=== PATIENT | male | born 1995 | race Caucasian/White ===

== ENCOUNTER 2019-05-28 21:45 | Inpatient (IN) ==
[2019-05-28 23:54] LABS: Basophils % 0.3 %; Eosinophils # 0.1 K/mcL (0.0-0.6); Eosinophils % 1.2 %; Hematocrit 46.9 % (37.5-50.1); Immature Granulocytes % 0.2 % (0-4); Lymphocytes # 2.5 K/mcL (0.6-4.6); Lymphocytes % 26.3 %; Mean Corpuscular HGB Conc 34.1 g/dL (31.6-35.5); Mean Corpuscular Hemoglobin 28.7 pg (28.0-33.3); Mean Corpuscular Volume 84.1 fL (83.0-100.0); Mean Platelet Volume 10.5 fL (9.4-12.4); Monocytes # 0.7 K/mcL (0.0-1.3); Neutrophils # 6.2 K/mcL (1.6-8.9); Platelet Count 190 K/mcL (140-400); Red Blood Count 5.58 M/mcL (4.19-5.50); Red Cell Distribution Width 11.6 % (11.5-14.5); White Blood Count 9.5 K/mcL (4.3-11.1)
[2019-05-29 00:16] LABS: BUN/Creatinine Ratio 8 (6-26); Blood Urea Nitrogen 8 mg/dL (6-20); Calcium 8.8 mg/dL (8.6-10.3); Carbon Dioxide 29 mEq/L (23-29); Chloride 98 mEq/L (98-107); Glucose 111 mg/dL (70-105); Osmolality,Calculated 277 (280-300); Potassium 3.2 mEq/L (3.5-5.1); Sodium 134 mEq/L (136-145); eGFR For African Americans > 60 (> 60); eGFR For Non-African Americans > 60 (> 60)
[2019-05-29 00:48] LABS: Bilirubin,Urine Small (Negative); Blood,Urine Negative (Negative); Clarity,Urine Clear (Clear); Color,Urine Dark Yellow (Yellow); Glucose,Urine (UA) Normal (Normal); Ketones,Urine Negative (Negative); Leukocyte Esterase,Urine Negative (Negative); Nitrite,Urine Negative (Negative); Protein,Urine Negative (Neg-Trace); Specific Gravity,Urine 1.026 (1.010-1.025)
[2019-05-29] MEDS ORDERED: Ondansetron 4 MG/2 ML VIAL IVP ONE (00:51)
[2019-05-29] MEDS ORDERED: 0.9 % Sodium Chloride 1,000 ML IVC ONE (00:51)
--- NOTE | 2019-05-29 00:53 | Emergency Department Note ---
Disposition Clinical Impression: Meningitis Headache Qualifiers: Headache type: unspecified Headache chronicity pattern: acute headache Intractability: intractable Qualified Code(s): R51 - Headache Fever Qualifiers: Fever type: unspecified Qualified Code(s): R50.9 - Fever, unspecified Disposition: Still a Patient Condition: Fair Time of Disposition: 06:23 Headache HPI - General Chief Complaint: ED Headache Stated Complaint: "R/O meningitis" WAUC/headache/fever Time Seen by Provider: 05/28/19 23:49 Source: patient, family Mode of arrival: ambulatory Limitations: no limitations Nursing Notes Reviewed: Yes Vital Signs Reviewed: Yes - History of Present Illness HPI Narrative: 4-year-old male patient presents emergency room for evaluation of headache. He was seen at [facility] with the fever advised him to come here. Headache is been ongoing for the last 1 week. States had a fever intermittently. Take Motrin. He has pain in the base of his neck hurts a little with movement Patient has a loss of bowel or bladder function. Patient has had upper respiratory type symptoms for the last few days. He also states that several does of been sick with runny nose cough and congestion type symptoms. Pt Subjective Complaint: headache Onset (ago): week(s) (1) Onset description: gradual Location: occipital Pain Severity: moderate Pain Scale: 8 Quality: throbbing Improves with: nothing Worsens with: movement of head/neck Associated symptoms: Reports: fever, nausea. Denies: chest pain, cough, diaphoresis, vomiting, neck stiffness, photophobia, phonophobia, seizure Treatments prior to arrival: acetaminophen, NSAID - Related Data Home Medications Medication Instructions Recorded Confirmed No Known Home Drugs 05/28/19 05/28/19 Allergies Allergy/AdvReac Type Severity Reaction Status Date / Time azithromycin [From Zithromax] AdvReac Vomiting Verified 05/28/19 22:00 All systems ED: reviewed and negative except as stated. Constitutional: Reports: fever, chills, other (Headache). Denies: weakness, weight change Eyes: Denies: eye pain, eye discharge, vision change ENT ED: Denies: ear pain, throat pain, dental pain, hearing loss, epistaxis, congestion, dysphagia Cardiovascular: Denies: chest pain, palpitations, dyspnea on exertion, edema, syncope Respiratory: Reports: cough (Mild occasional). Denies: dyspnea, wheezes, hemoptysis, stridor Gastrointestinal: Denies: abdominal pain, nausea, vomiting, diarrhea, constipation, hematemesis, melena, hematochezia Genitourinary: Denies: urgency, dysuria, frequency, hematuria Musculoskeletal: Denies: back pain, neck pain, arthralgia, myalgia Integumentary: Denies: rash, abrasion, lesions Neurological: Reports: headache. Denies: weakness, numbness, paresthesias, confusion, abnormal gait, vertigo Psychiatric: Denies: anxiety, depression, suicidal thoughts, homicidal thoughts, auditory hallucinations, visual hallucinations Endocrine: Denies: fatigue Hematological/Lymphatic: Denies: easy bleeding, easy bruising Allergic/Immunologic: Denies: facial swelling, urticaria Headache PMH - Past Medical History Medical history: Reports: no medical history Male Surgical History: Reports: no surgical history Psychiatric history: Reports: no psych history - Social History Smoking Status: Current every day smoker Alcohol use: Reports: occasionally Drug use: Reports: none Physical Exam - General Limitations: no limitations General appearance: alert, in no apparent distress - Head Head exam: atraumatic, normocephalic, normal inspection - Eye Eye exam: Present: normal appearance, PERRL, EOMI - ENT ENT exam: normal exam, normal oropharynx, mucous membranes moist - Neck Neck exam: Present: normal inspection, full ROM, trachea midline - Chest Chest inspection: Present: normal inspection, symmetric chest wall rise - Respiratory Respiratory exam: Present: normal lung sounds bilaterally. Absent: respiratory distress, wheezes - Cardiovascular Cardiovascular exam: Present: regular rate, normal rhythm, normal heart sounds - Abdominal Exam Abdominal exam: Present: soft, Non-Tender, normal bowel sounds. Absent: tenderness, distention, guarding, rebound, rigidity - Extremities Exam Extremities exam: Present: normal inspection, full ROM. Absent: tenderness, pedal edema - Neurological Exam Neurological exam: Present: alert, oriented X3, CN II-XII intact, normal gait, other (Patient is negative for Brudzinski's or Kernig's sign.). Absent: motor sensory deficit - Expanded Neurological Exam Patient oriented to: Present: person, place, time Speech: Present: fluid speech Cranial nerves: EOM function (II, III, IV, ): Normal, facial sensation (V): Normal, facial palsy (VII): Normal, gag reflex (IX): Normal, spinal accessory function (XI): Normal, tongue deviation (XII): Normal Motor strength - LUE: 5/5 Motor strength - RUE: 5/5 Motor strength - LLE: 5/5 Motor strength - RLE: 5/5 Coma Scale Eye Opening: Spontaneous Coma Scale Motor Response: Obeys Commands Coma Scale Verbal Response: Oriented Coma Scale Total: 15 - Psychiatric Psychiatric exam: Present: normal affect, normal mood - Skin Skin exam: Present: warm, dry, intact, normal color. Absent: rash Course Course Narrative: Patient was placed in exam room. H&P of pain. Nurse's notes reviewed. Patient does not have any meningismus type signs or symptoms but does have a headache and pain in the base of his neck. Patient was in there for further evaluation for meningitis. Basic lab work including a head CT and chest x-ray, Monospot, rapid strep were obtained. There are no significant abnormalities. Patient wh ite count was normal CT scan was read and interpreted showed no acute bleed or malformation. Patient gave informed consent for lumbar puncture. Risks and benefits were explained. Lumbar puncture was performed. There was a large amount nuclear cells no red cells, negative for xanthochromia, protein was elevated and glucose was normal. Patient was given Rocephin 2 g IV. Blood cultures were obtained prior to antibiotic administration. Patient will require admission. Dr. Thompson, we will contact and speak to the hospitalist concerning this. Additional buttocks or even antivirals may need to be added this over discussed with the admitting physician as well as infectious disease if necessary Patient denies to me any IV drug use and urine drug screen was negative - Reevaluation(s) Reevaluation #1: Patient is resting comfortably Time: 04:30 Reevaluation #2: Patient was evaluated several times.. He remained comfortable. Time: 05:30 Reevaluation #3: Patient was reevaluated multiple times during the members department visit. Patient is aware of and is okay with observation/admission. Time: 07:30 Vital Signs Temperature 100.1 F H 05/28/19 22:00 Pulse Rate 84 05/28/19 22:00 Respiratory Rate 20 05/28/19 22:00 Blood Pressure 159/76 05/28/19 22:00 O2 Sat by Pulse Oximetry 97 05/28/19 22:00 Temperature 99.5 F 05/29/19 08:01 Pulse Rate 85 05/29/19 08:01 Respiratory Rate 20 05/29/19 07:11 Blood Pressure 116/48 05/29/19 07:11 O2 Sat by Pulse Oximetry 96 05/29/19 08:01 Oxygen Delivery Oxygen Delivery Room Air Procedures - Lumbar Puncture Consent Obtained: verbal consent, written consent Time Out Performed: Yes Patient Position: upright Skin Prep: Povidone-Iodine 1% Local Anesthetic: lidocaine 1% Amount of anesthesia used (mL): 3 Spinal Needle Gauge: 20G Interspace Used: L3-L4 Fluid Initially Obtained: bloody Complications: none, bleeding Headache - Differential Diagnosis Differential Diagnosis: Likely: migraine, subarachnoid hemorrhage, headache, menigitis - Medical Records Medical records reviewed: Yes I reviewed the patient's medical records. - Lab Data Lab results reviewed: Yes I reviewed the patient's lab results. Lab results narrative: Chest X-Ray 05/29/19 02:17 IMPRESSION: No pneumonia or any other acute cardiopulmonary abnormality. D/ / Krystian Cohen / Krystian Cohen Interpreting Provider: Krystian Cohen Head CT 05/29/19 02:44 IMPRESSION: No acute intracranial abnormality or mass. D/ / Krystian Cohen / Krystian Cohen Interpreting Provider: Krystian Cohen Result diagrams: 05/28/19 23:35 05/28/19 23:35 Lab Results 05/28/19 05/28/19 05/29/19 Range/Units 23:35 23:35 00:06 WBC 9.5 (4.3-11.1) K/mcL RBC 5.58 H (4.19-5.50) M/mcL Hgb 16.0 (12.9-16.9) g/dL Hct 46.9 (37.5-50.1) % MCV 84.1 (83.0-100.0) fL MCH 28.7 (28.0-33.3) pg MCHC 34.1 (31.6-35.5) g/dL RDW 11.6 (11.5-14.5) % Plt Count 190 (140-400) K/mcL MPV 10.5 (9.4-12.4) fL Immature Gran % 0.2 (0-4) % Seg Neutrophils % 65.0 % Lymphocytes % 26.3 % Monocytes % 7.0 % Eosinophils % 1.2 % Basophils % 0.3 % Neutrophils # 6.2 (1.6-8.9) K/mcL Lymphocytes # 2.5 (0.6-4.6) K/mcL Monocytes # 0.7 (0.0-1.3) K/mcL Eosinophils # 0.1 (0.0-0.6) K/mcL Basophils # 0.0 (0.0-0.2) K/mcL Sodium 134 L (136-145) mEq/L Potassium 3.2 L (3.5-5.1) mEq/L Chloride 98 (98-107) mEq/L Carbon Dioxide 29 (23-29) mEq/L BUN 8 (6-20) mg/dL Creatinine 1.01 (0.70-1.30) mg/dL Est GFR ( Amer) > 60 (> 60) Est GFR (Non-Af Amer) > 60 (> 60) BUN/Creatinine Ratio 8 (6-26) Glucose 111 H (70-105) mg/dL Calculated Osmolality 277 L (280-300) Lactic Acid 0.7 (0.5-2.2) mmol/L Calcium 8.8 (8.6-10.3) mg/dL Urine Color (Yellow) Urine Clarity (Clear) Urine pH (5.0-8.0) pH Units Ur Specific [place] (1.010-1.025) Urine Protein (Neg-Trace) mg/dL Urine Glucose (UA) (Normal) mg/dL Urine Ketones (Negative) mg/dL Urine Blood (Negative) Urine Nitrite (Negative) Urine Bilirubin (Negative) Urine Urobilinogen (Normal) mg/dL Ur Leukocyte Esterase (Negative) Ur Culture Indicated? (NO) CSF Volume mL CSF Appearance (Clear) CSF Color (Colorless) CSF RBC (0.000 - 0.002) M/mcL CSF Tot Nucleated Cells (0-5) TNC/mcL CSF Seg Neutrophils % CSF Lymphocytes % % CSF Monocytes % % CSF Eosinophils % % CSF Basophils % % CSF Glucose (40-70) mg/dL CSF Xanth Comm (Not Observe) CSF Total Protein (15-45) mg/dL Urine Opiates Screen (Incxqq=745) ng/mL Ur Buprenorphine Scrn (Cutoff=5) ng/mL Ur Barbiturates Screen (Jhljfv=762) ng/mL Ur Phencyclidine Scrn (Cutoff=25) ng/mL Ur Amphetamines Screen (Zwsyfy=4716) ng/mL U Benzodiazepines Scrn (Mqznce=656) ng/mL Urine Cocaine Screen (Cutoff= 300) ng/mL U Marijuana (THC) Screen (Cutoff = 50) ng/mL Ur Drug Screen Interp Infectious [place] Assay (Negative) 05/29/19 05/29/19 05/29/19 Range/Units 00:34 00:34 01:05 WBC (4.3-11.1) K/mcL RBC (4.19-5.50) M/mcL Hgb (12.9-16.9) g/dL Hct (37.5-50.1) % MCV (83.0-100.0) fL MCH (28.0-33.3) pg MCHC (31.6-35.5) g/dL RDW (11.5-14.5) % Plt Count (140-400) K/mcL MPV (9.4-12.4) fL Immature Gran % (0-4) % Seg Neutrophils % % Lymphocytes % % Monocytes % % Eosinophils % % Basophils % % Neutrophils # (1.6-8.9) K/mcL Lymphocytes # (0.6-4.6) K/mcL Monocytes # (0.0-1.3) K/mcL Eosinophils # (0.0-0.6) K/mcL Basophils # (0.0-0.2) K/mcL Sodium (136-145) mEq/L Potassium (3.5-5.1) mEq/L Chloride (98-107) mEq/L Carbon Dioxide (23-29) mEq/L BUN (6-20) mg/dL Creatinine (0.70-1.30) mg/dL Est GFR ( Amer) (> 60) Est GFR (Non-Af Amer) (> 60) BUN/Creatinine Ratio (6-26) Glucose (70-105) mg/dL Calculated Osmolality (280-300) Lactic Acid (0.5-2.2) mmol/L Calcium (8.6-10.3) mg/dL Urine Color Dark Yellow (Yellow) Urine Clarity Clear (Clear) Urine pH 6.0 (5.0-8.0) pH Units Ur Specific [place] 1.026 H (1.010-1.025) Urine Protein Negative (Neg-Trace) mg/dL Urine Glucose (UA) Normal (Normal) mg/dL Urine Ketones Negative (Negative) mg/dL Urine Blood Negative (Negative) Urine Nitrite Negative (Negative) Urine Bilirubin Small H (Negative) Urine Urobilinogen 2.0 H (Normal) mg/dL Ur Leukocyte Esterase Negative (Negative) Ur Culture Indicated? NO (NO) CSF Volume mL CSF Appearance (Clear) CSF Color (Colorless) CSF RBC (0.000 - 0.002) M/mcL CSF Tot Nucleated Cells (0-5) TNC/mcL CSF Seg Neutrophils % CSF Lymphocytes % % CSF Monocytes % % CSF Eosinophils % % CSF Basophils % % CSF Glucose (40-70) mg/dL CSF Xanth Comm (Not Observe) CSF Total Protein (15-45) mg/dL Urine Opiates Screen Negative (Dzveam=189) ng/mL Ur Buprenorphine Scrn Negative (Cutoff=5) ng/mL Ur Barbiturates Screen Negative ([place]=061) ng/mL Ur Phencyclidine Scrn Negative (Cutoff=25) ng/mL Ur Amphetamines Screen Negative (Iotvjt=8097) ng/mL U Benzodiazepines Scrn Negative (Xufenb=567) ng/mL Urine Cocaine Screen Negative (Cutoff= 300) ng/mL U Marijuana (THC) Screen Negative (Cutoff = 50) ng/mL Ur Drug Screen Interp See Below Infectious [place] Assay Negative (Negative) 05/29/19 Range/Units 06:08 WBC (4.3-11.1) K/mcL RBC (4.19-5.50) M/mcL Hgb (12.9-16.9) g/dL Hct (37.5-50.1) % MCV (83.0-100.0) fL MCH (28.0-33.3) pg MCHC (31.6-35.5) g/dL RDW (11.5-14.5) % Plt Count (140-400) K/mcL MPV (9.4-12.4) fL Immature Gran % (0-4) % Seg Neutrophils % % Lymphocytes % % Monocytes % % Eosinophils % % Basophils % % Neutrophils # (1.6-8.9) K/mcL Lymphocytes # (0.6-4.6) K/mcL Monocytes # (0.0-1.3) K/mcL Eosinophils # (0.0-0.6) K/mcL Basophils # (0.0-0.2) K/mcL Sodium (136-145) mEq/L Potassium (3.5-5.1) mEq/L Chloride (98-107) mEq/L Carbon Dioxide (23-29) mEq/L BUN (6-20) mg/dL Creatinine (0.70-1.30) mg/dL Est GFR ( Amer) (> 60) Est GFR (Non-Af Amer) (> 60) BUN/Creatinine Ratio (6-26) Glucose (70-105) mg/dL Calculated Osmolality (280-300) Lactic Acid (0.5-2.2) mmol/L Calcium (8.6-10.3) mg/dL Urine Color (Yellow) Urine Clarity (Clear) Urine pH (5.0-8.0) pH Units Ur Specific [place] (1.010-1.025) Urine Protein (Neg-Trace) mg/dL Urine Glucose (UA) (Normal) mg/dL Urine Ketones (Negative) mg/dL Urine Blood (Negative) Urine Nitrite (Negative) Urine Bilirubin (Negative) Urine Urobilinogen (Normal) mg/dL Ur Leukocyte Esterase (Negative) Ur Culture Indicated? (NO) CSF Volume 9.0 mL CSF Appearance Cloudy (Clear) CSF Color Colorless (Colorless) CSF RBC < 0.002 (0.000 - 0.002) M/mcL CSF Tot Nucleated Cells 1410 H* (0-5) TNC/mcL CSF Seg Neutrophils 69.0 % CSF Lymphocytes % 23.0 % CSF Monocytes % 8.0 % CSF Eosinophils % 0 % CSF Basophils % 0 % CSF Glucose 54 (40-70) mg/dL CSF Xanth Comm Not Observed (Not Observe) CSF Total Protein 127 H (15-45) mg/dL Urine Opiates Screen (Efagol=034) ng/mL Ur Buprenorphine Scrn (Cutoff=5) ng/mL Ur Barbiturates Screen (Pxjsoh=649) ng/mL Ur Phencyclidine Scrn (Cutoff=25) ng/mL Ur Amphetamines Screen (Mwoowl=4405) ng/mL U Benzodiazepines Scrn (Heazyw=628) ng/mL Urine Cocaine Screen (Cutoff= 300) ng/mL U Marijuana (THC) Screen (Cutoff = 50) ng/mL Ur Drug Screen Interp Infectious [place] Assay (Negative) - Radiology Data Radiology results reviewed: Yes I reviewed the patient's radiology results. Chest X-Ray 05/29/19 02:17 IMPRESSION: No pneumonia or any other acute cardiopulmonary abnormality. D/ / Krystian Cohen / Krystian Cohen Interpreting Provider: Krystian Coehn Head CT 05/29/19 02:44 IMPRESSION: No acute intracranial abnormality or mass. D/ / Krystian Cohen / Krystian Cohen Interpreting Provider: Krystian Cohen Critical Care Time Critical Care Time: Yes Total Critical Care Time: 30 Attestation: The high probability of a clinically significant, sudden or life threatening deterioration of the patient's condition required my full and direct attention, intervention and personal management.
[2019-05-29 02:05] LABS: Amphetamine Screen,Urine Negative ng/mL (Cutoff=1000); Barbiturate Screen,Urine Negative ng/mL (Cutoff=200); Benzodiazepines Screen,Urine Negative ng/mL (Cutoff=200); Cannabinoid Screen,Urine Negative ng/mL (Cutoff = 50); Cocaine Screen,Urine Negative ng/mL (Cutoff= 300); Opiate Screen,Urine Negative ng/mL (Cutoff=300); Phencyclidine Screen,Urine Negative ng/mL (Cutoff=25)
[2019-05-29] MEDS ORDERED: cefTRIAXone 2,000 MG in 0.9 % Sodium Chloride Mini Bag 100 ML IVPB ONE (06:12)
[2019-05-29 06:29] LABS: Red Blood Cell,CSF < 0.002 M/mcL
[2019-05-29 06:57] LABS: Appearance,CSF Cloudy (Clear)
[2019-05-29 07:04] LABS: Glucose,CSF 54 mg/dL (40-70); Total Protein,CSF 127 mg/dL (15-45)
[2019-05-29 07:09] LABS: Basophils,CSF 0 %; Eosinophils,CSF 0 %
[2019-05-29] MEDS ORDERED: Vancomycin 1,750 MG in 0.9 % Sodium Chloride 250 ML IVPB ONE (07:41)
[2019-05-29] MEDS ORDERED: Acyclovir 800 MG in D5% in Water 250 ML IVPB ONE (07:41)
[2019-05-29] MEDS ORDERED: Potassium Chloride 40 MEQ, Lidocaine 1% 2 ML in 0.9 % Sodium Chloride 500 ML IVPB ONE (07:42)
--- NOTE | 2019-05-29 07:55 | Emergency Department Note ---
Disposition Clinical Impression: Meningitis Headache Qualifiers: Headache type: unspecified Headache chronicity pattern: acute headache Intractability: intractable Qualified Code(s): R51 - Headache Fever Qualifiers: Fever type: unspecified Qualified Code(s): R50.9 - Fever, unspecified Disposition: Still a Patient Condition: Fair Time of Disposition: 08:15 General Adult HPI - General Chief complaint: ED Headache Stated complaint: "R/O meningitis" WAUC/headache/fever Time Seen by Provider: 05/28/19 23:49 Source: patient, family Mode of arrival: ambulatory Limitations: no limitations Nursing Notes Reviewed: Yes Vital Signs Reviewed: Yes - History of Present Illness Pain Scale: 8 - Related Data Home Medications Medication Instructions Recorded Confirmed No Known Home Drugs 05/28/19 05/28/19 Allergies Allergy/AdvReac Type Severity Reaction Status Date / Time azithromycin [From Zithromax] AdvReac Vomiting Verified 05/28/19 22:00 Past Medical History - Past Medical History Attestation: Yes The following information was validated with the patient. Medical history: Reports: no medical history Surgical history: Reports: no surgical history Psychiatric history: Reports: no psych history - Social History Smoking Status: Current every day smoker Smokeless Tobacco Status: No Alcohol use: Reports: occasionally Drug use: Reports: none Physical Exam - General Limitations: no limitations General appearance: alert Course - Reevaluation(s) Reevaluation #1: Patient signed out pending admission. He is a 24-year-old healthy male who sent a week was of an occipital headache. He is now having a neck stiffness and a fever for the past 24 hours. I reexamined him. He does have some neck pain with range of motion, but he has full range of motion. Able to flex his knees to his chest without difficulty. CSF did show a lot of white cells. I had them add on HSV PCR. Patient received 2 g of Rocephin. I did add VAncomycin and acyclovir. Awaiting hospitalist call back for admission. Nurse placing second IV. Time: 07:55 - Consultations Consultation #1: Dr Meyer accepts admission. Time: 08:15 Vital Signs Temperature 100.1 F H 05/28/19 22:00 Pulse Rate 84 05/28/19 22:00 Respiratory Rate 20 05/28/19 22:00 Blood Pressure 159/76 05/28/19 22:00 O2 Sat by Pulse Oximetry 97 05/28/19 22:00 Temperature 99.5 F 05/29/19 08:01 Pulse Rate 85 05/29/19 08:01 Respiratory Rate 20 05/29/19 07:11 Blood Pressure 116/48 05/29/19 07:11 O2 Sat by Pulse Oximetry 96 05/29/19 08:01 Oxygen Delivery Oxygen Delivery Room Air Medical Decision Making - Lab Data Result diagrams: 05/28/19 23:35 05/28/19 23:35 Lab Results 05/28/19 05/28/19 05/29/19 Range/Units 23:35 23:35 00:06 WBC 9.5 (4.3-11.1) K/mcL RBC 5.58 H (4.19-5.50) M/mcL Hgb 16.0 (12.9-16.9) g/dL Hct 46.9 (37.5-50.1) % MCV 84.1 (83.0-100.0) fL MCH 28.7 (28.0-33.3) pg MCHC 34.1 (31.6-35.5) g/dL RDW 11.6 (11.5-14.5) % Plt Count 190 (140-400) K/mcL MPV 10.5 (9.4-12.4) fL Immature Gran % 0.2 (0-4) % Seg Neutrophils % 65.0 % Lymphocytes % 26.3 % Monocytes % 7.0 % Eosinophils % 1.2 % Basophils % 0.3 % Neutrophils # 6.2 (1.6-8.9) K/mcL Lymphocytes # 2.5 (0.6-4.6) K/mcL Monocytes # 0.7 (0.0-1.3) K/mcL Eosinophils # 0.1 (0.0-0.6) K/mcL Basophils # 0.0 (0.0-0.2) K/mcL Sodium 134 L (136-145) mEq/L Potassium 3.2 L (3.5-5.1) mEq/L Chloride 98 (98-107) mEq/L Carbon Dioxide 29 (23-29) mEq/L BUN 8 (6-20) mg/dL Creatinine 1.01 (0.70-1.30) mg/dL Est GFR ( Amer) > 60 (> 60) Est GFR (Non-Af Amer) > 60 (> 60) BUN/Creatinine Ratio 8 (6-26) Glucose 111 H (70-105) mg/dL Calculated Osmolality 277 L (280-300) Lactic Acid 0.7 (0.5-2.2) mmol/L Calcium 8.8 (8.6-10.3) mg/dL Urine Color (Yellow) Urine Clarity (Clear) Urine pH (5.0-8.0) pH Units Ur Specific [place] (1.010-1.025) Urine Protein (Neg-Trace) mg/dL Urine Glucose (UA) (Normal) mg/dL Urine Ketones (Negative) mg/dL Urine Blood (Negative) Urine Nitrite (Negative) Urine Bilirubin (Negative) Urine Urobilinogen (Normal) mg/dL Ur Leukocyte Esterase (Negative) Ur Culture Indicated? (NO) CSF Volume mL CSF Appearance (Clear) CSF Color (Colorless) CSF RBC (0.000 - 0.002) M/mcL CSF Tot Nucleated Cells (0-5) TNC/mcL CSF Seg Neutrophils % CSF Lymphocytes % % CSF Monocytes % % CSF Eosinophils % % CSF Basophils % % CSF Glucose (40-70) mg/dL CSF Xanth Comm (Not Observe) CSF Total Protein (15-45) mg/dL Urine Opiates Screen (Qnltwb=467) ng/mL Ur Buprenorphine Scrn (Cutoff=5) ng/mL Ur Barbiturates Screen (Atiaop=663) ng/mL Ur Phencyclidine Scrn (Cutoff=25) ng/mL Ur Amphetamines Screen (Evugwk=1251) ng/mL U Benzodiazepines Scrn (Vqsnxh=777) ng/mL Urine Cocaine Screen (Cutoff= 300) ng/mL U Marijuana (THC) Screen (Cutoff = 50) ng/mL Ur Drug Screen Interp Infectious [place] Assay (Negative) 05/29/19 05/29/19 05/29/19 Range/Units 00:34 00:34 01:05 WBC (4.3-11.1) K/mcL RBC (4.19-5.50) M/mcL Hgb (12.9-16.9) g/dL Hct (37.5-50.1) % MCV (83.0-100.0) fL MCH (28.0-33.3) pg MCHC (31.6-35.5) g/dL RDW (11.5-14.5) % Plt Count (140-400) K/mcL MPV (9.4-12.4) fL Immature Gran % (0-4) % Seg Neutrophils % % Lymphocytes % % Monocytes % % Eosinophils % % Basophils % % Neutrophils # (1.6-8.9) K/mcL Lymphocytes # (0.6-4.6) K/mcL Monocytes # (0.0-1.3) K/mcL Eosinophils # (0.0-0.6) K/mcL Basophils # (0.0-0.2) K/mcL Sodium (136-145) mEq/L Potassium (3.5-5.1) mEq/L Chloride (98-107) mEq/L Carbon Dioxide (23-29) mEq/L BUN (6-20) mg/dL Creatinine (0.70-1.30) mg/dL Est GFR ( Amer) (> 60) Est GFR (Non-Af Amer) (> 60) BUN/Creatinine Ratio (6-26) Glucose (70-105) mg/dL Calculated Osmolality (280-300) Lactic Acid (0.5-2.2) mmol/L Calcium (8.6-10.3) mg/dL Urine Color Dark Yellow (Yellow) Urine Clarity Clear (Clear) Urine pH 6.0 (5.0-8.0) pH Units Ur Specific [place] 1.026 H (1.010-1.025) Urine Protein Negative (Neg-Trace) mg/dL Urine Glucose (UA) Normal (Normal) mg/dL Urine Ketones Negative (Negative) mg/dL Urine Blood Negative (Negative) Urine Nitrite Negative (Negative) Urine Bilirubin Small H (Negative) Urine Urobilinogen 2.0 H (Normal) mg/dL Ur Leukocyte Esterase Negative (Negative) Ur Culture Indicated? NO (NO) CSF Volume mL CSF Appearance (Clear) CSF Color (Colorless) CSF RBC (0.000 - 0.002) M/mcL CSF Tot Nucleated Cells (0-5) TNC/mcL CSF Seg Neutrophils % CSF Lymphocytes % % CSF Monocytes % % CSF Eosinophils % % CSF Basophils % % CSF Glucose (40-70) mg/dL CSF Xanth Comm (Not Observe) CSF Total Protein (15-45) mg/dL Urine Opiates Screen Negative (Hjzzyj=484) ng/mL Ur Buprenorphine Scrn Negative (Cutoff=5) ng/mL Ur Barbiturates Screen Negative (Hsngdr=221) ng/mL Ur Phencyclidine Scrn Negative (Cutoff=25) ng/mL Ur Amphetamines Screen Negative (Uhovps=7448) ng/mL U Benzodiazepines Scrn Negative (Ebuhan=358) ng/mL Urine Cocaine Screen Negative (Cutoff= 300) ng/mL U Marijuana (THC) Screen Negative (Cutoff = 50) ng/mL Ur Drug Screen Interp See Below Infectious [place] Assay Negative (Negative) 05/29/19 Range/Units 06:08 WBC (4.3-11.1) K/mcL RBC (4.19-5.50) M/mcL Hgb (12.9-16.9) g/dL Hct (37.5-50.1) % MCV (83.0-100.0) fL MCH (28.0-33.3) pg MCHC (31.6-35.5) g/dL RDW (11.5-14.5) % Plt Count (140-400) K/mcL MPV (9.4-12.4) fL Immature Gran % (0-4) % Seg Neutrophils % % Lymphocytes % % Monocytes % % Eosinophils % % Basophils % % Neutrophils # (1.6-8.9) K/mcL Lymphocytes # (0.6-4.6) K/mcL Monocytes # (0.0-1.3) K/mcL Eosinophils # (0.0-0.6) K/mcL Basophils # (0.0-0.2) K/mcL Sodium (136-145) mEq/L Potassium (3.5-5.1) mEq/L Chloride (98-107) mEq/L Carbon Dioxide (23-29) mEq/L BUN (6-20) mg/dL Creatinine (0.70-1.30) mg/dL Est GFR ( Amer) (> 60) Est GFR (Non-Af Amer) (> 60) BUN/Creatinine Ratio (6-26) Glucose (70-105) mg/dL Calculated Osmolality (280-300) Lactic Acid (0.5-2.2) mmol/L Calcium (8.6-10.3) mg/dL Urine Color (Yellow) Urine Clarity (Clear) Urine pH (5.0-8.0) pH Units Ur Specific [place] (1.010-1.025) Urine Protein (Neg-Trace) mg/dL Urine Glucose (UA) (Normal) mg/dL Urine Ketones (Negative) mg/dL Urine Blood (Negative) Urine Nitrite (Negative) Urine Bilirubin (Negative) Urine Urobilinogen (Normal) mg/dL Ur Leukocyte Esterase (Negative) Ur Culture Indicated? (NO) CSF Volume 9.0 mL CSF Appearance Cloudy (Clear) CSF Color Colorless (Colorless) CSF RBC < 0.002 (0.000 - 0.002) M/mcL CSF Tot Nucleated Cells 1410 H* (0-5) TNC/mcL CSF Seg Neutrophils 69.0 % CSF Lymphocytes % 23.0 % CSF Monocytes % 8.0 % CSF Eosinophils % 0 % CSF Basophils % 0 % CSF Glucose 54 (40-70) mg/dL CSF Xanth Comm Not Observed (Not Observe) CSF Total Protein 127 H (15-45) mg/dL Urine Opiates Screen (Abnfwo=518) ng/mL Ur Buprenorphine Scrn (Cutoff=5) ng/mL Ur Barbiturates Screen (Ybdwaj=731) ng/mL Ur Phencyclidine Scrn (Cutoff=25) ng/mL Ur Amphetamines Screen (Dwtsnu=9790) ng/mL U Benzodiazepines Scrn (Qatepv=408) ng/mL Urine Cocaine Screen (Cutoff= 300) ng/mL U Marijuana (THC) Screen (Cutoff = 50) ng/mL Ur Drug Screen Interp Infectious [place] Assay (Negative)
--- NOTE | 2019-05-29 08:28 | Internal Med History&Physical ---
Date of Encounter: 05/29/19 Time of Encounter: 08:25 Internal Medicine - H&P: HPI Chief complaint: headache Admitted From: Home Plans for Post Hospital Care: Home History of present illness: Mr. Bender is a 24 year old male with past medical history of asthma came in with complain of 8 days' history of headache and fevers of 104 over the past 4-5 days on and off. Patient was sent from urgent care for evaluation of m eningitis. Patient reported upper respiratory symptoms including runny nose and sore throat starting about 7-8 days ago. He was taking Motrin for pain relief. Everything started about the same time including headache, runny nose and fever a few days later. Headache was occipital in nature. Denies any visual symptoms or any weakness, numbness. Headache worsened to include neck pain and upper b ack pain. Patient reported one episodes of vomiting and 2 episodes of diarrhea and decreased appetite. He lives at home and denies any IV drug use. He smokes. He reports allergy to azithromycin where he had stomach upset. Patient was admitted in the ER. Patient had a fever of 100.[address] head which did not show any signs of increased intracranial pressure. Monospot test and strep tests were negative. Lab was mostly unremarkable except mild hyponatremia and hypokalemia. Patient was given 2 of Rocephin. Lumbar puncture showed 1400 nucleated status with neutrophil predominance in CSF. Total protein In CSF was elevated at 127. Patient's lactic acid was normal and he received 1 L of normal saline. Patient was ordered of potassium, vancomycin and acyclovir and admission was requested for further management. Past Med Surg Social Fam HX - Past Medical History Medical history: asthma Psychiatric history: no psych history - Past Surgical History Surgical History: no surgical history - Social History Smoking Status: Current every day smoker Smokeless Tobacco Status: No Alcohol use: occasionally Drug use: none - Additional Family History Additional family history: brother has asthma. mother has copd and asthma. son had recent URI Internal Medicine - H&P: Meds No Known Home Drugs 05/28/19 [History] Allergy/AdvReac Type Severity Reaction Status Date / Time azithromycin [From Zithromax] AdvReac Vomiting Verified 05/28/19 22:00 All Systems PM: A 10-system review of systems was performed and is negative for pertinent findings except as documented above in the HPI. - Constitutional Vitals: Temp Pulse Resp BP Pulse Ox 99.5 F 85 20 116/48 96 05/29/19 08:01 05/29/19 08:01 05/29/19 07:11 05/29/19 07:11 05/29/19 08:01 Exam: Constitutional: Vitals as noted. Conversant. appears ill Eyes : Sclera white, conjunctiva clear, no lid lag, PEARLA. ENT : Grossly normal hearing, No JVD, no cervical lymphadenopathy. no thy romegaly or mass. Respiratory : Clear to auscultation bilaterally. No accessory muscle use, rales, rhonchi or wheezes Cardiovascular : RRR, +S1, +S2. no murmur, gallop, rubs. No chest wall tenderness GI/Abdominal : Soft, Non-tender, Non-distended, normal bowel sounds, no peritoneal signs. no orgenomegaly or mass appreciated. no hernia. Musculoskeletal: no deformity noted. no edema or cyanosis. warm extremities, pulses palpable and symmetrical in UE/LE. no calf tenderness. Neurological: AO X3, CN II-XII grossly intact, grossly normal motor and sensory exam. able to touch chin to chest with some neck pain, able to bring knee to chest without any pain. Skin: No skin rash, lesions or ulcers noted. Pych: Good insight and judgement. Intact memory. AOx3. Internal Med - H&P Results - Labs CBC & Chem 7: 05/28/19 23:35 05/28/19 23:35 Labs: Short CBC 05/28/19 Range/Units 23:35 WBC 9.5 (4.3-11.1) K/mcL Hgb 16.0 (12.9-16.9) g/dL Hct 46.9 (37.5-50.1) % Plt Count 190 (140-400) K/mcL Neutrophils # 6.2 (1.6-8.9) K/mcL BMP 05/28/19 23:35 Sodium 134 L Potassium 3.2 L Chloride 98 Carbon Dioxide 29 BUN 8 Creatinine 1.01 Glucose 111 H Calcium 8.8 Urine 05/29/19 Range/Units 00:34 Urine Color Dark Yellow (Yellow) Urine Clarity Clear (Clear) Urine pH 6.0 (5.0-8.0) pH Units Ur Specific [place] 1.026 H (1.010-1.025) Urine Protein Negative (Neg-Trace) mg/dL Urine Glucose (UA) Normal (Normal) mg/dL - Impressions ITS Impressions Chest X-Ray 05/29/19 02:17 IMPRESSION: No pneumonia or any other acute cardiopulmonary abnormality. D/ / Krystian Cohen / Krystian Cohen Interpreting Provider: Krystian Cohen Head CT 05/29/19 02:44 IMPRESSION: No acute intracranial abnormality or mass. D/ / Krystian Choen / Krystian Cohen Interpreting Provider: Krystian Cohen - Assessment and Plan (1) Headache Current Visit: Yes Status: Acute Assessment and plan: Likely secondary to meningitis When necessary Tylenol for headache Management of meningitis as below Qualifiers: Headache type: new daily persistent Qualified Code(s): G44.52 - New daily persistent headache (NDPH) (2) Meningitis Current Visit: Yes Status: Acute Assessment and plan: Patient without significant white count however had URI with high grade fever, headache and neck pain with some neck rigidity CSF highly suspicious of bacterial meningitis. CSF pressure not reported. Head CT without signs of increased intracranial pressure. We will keep head of bed elevated. Patient was given 2 g Rocephin. We will continue patient on Rocephin 2 g every 12 hours and vancomycin. We will keep patient on droplet isolation. Patient did not receive any steroid before getting antibiotic administration. We will not give it at this point. meningitis appear less likely to be viral however we will wait herpes PCR and continue acyclovir for now. Appears more likely to be streptococcal pneumoniae as patient with no risk factor for meningococcus exposure. Keep patient on gentle IV fluids and Zofran for nausea. Await Gram stain and final CSF culture report. Will get HIV testing. (3) Asthma Current Visit: Yes Status: Acute Assessment and plan: Does not take any medications at home. We will give When necessary albuterol for shortness of breath. Qualifiers: Asthma severity: mild Asthma persistence: intermittent Asthma complication type: uncomplicated Qualified Code(s): J45.20 - Mild intermittent asthma, uncomplicated - Time Spent With Patient Total time spent is greater than 50% in coordination of care (as documented) at patient's floor/unit and/or counseling patient:
[2019-05-29] MEDS ORDERED: Acetaminophen 325 MG TABLET PO PRN (08:48)
[2019-05-29] MEDS ORDERED: Ondansetron 4 MG/2 ML VIAL IVP PRN (08:48)
[2019-05-29] MEDS ORDERED: Vancomycin 1,750 MG in 0.9 % Sodium Chloride 250 ML IVPB SCH (09:00)
[2019-05-29] MEDS: 0.9 % Sodium Chloride 1,000 ML IVC SCH ×2 (10:51→23:00)
[2019-05-29] MEDS: Nicotine 14 MG PATCH.TD24 TD SCH (13:55)
[2019-05-29] MEDS: cefTRIAXone 2,000 MG in Water for inj. (sterile) 20 ML IVP SCH (18:03)
[2019-05-29] MEDS: Acyclovir 750 MG in D5% in Water 250 ML IVPB SCH ×2 (18:03→23:59)
[2019-05-30] MEDS: cefTRIAXone 2,000 MG in Water for inj. (sterile) 20 ML IVP SCH ×2 (05:13→17:53)
[2019-05-30 05:15] LABS: Basophils % 0.4 %; Eosinophils # 0.1 K/mcL (0.0-0.6); Eosinophils % 1.9 %; Hematocrit 45.6 % (37.5-50.1); Hemoglobin 15.2 g/dL (12.9-16.9); Immature Granulocytes % 0.4 % (0-4); Lymphocytes # 2.5 K/mcL (0.6-4.6); Lymphocytes % 35.2 %; Mean Corpuscular HGB Conc 33.3 g/dL (31.6-35.5); Mean Corpuscular Hemoglobin 28.7 pg (28.0-33.3); Mean Corpuscular Volume 86.2 fL (83.0-100.0); Mean Platelet Volume 10.7 fL (9.4-12.4); Monocytes # 0.6 K/mcL (0.0-1.3); Monocytes % 8.9 %; Neutrophils # 3.7 K/mcL (1.6-8.9); Platelet Count 165 K/mcL (140-400); Red Blood Count 5.29 M/mcL (4.19-5.50); Red Cell Distribution Width 11.6 % (11.5-14.5); Segmented Neutrophils % 53.2 %
[2019-05-30 05:36] LABS: BUN/Creatinine Ratio 10 (6-26); Blood Urea Nitrogen 8 mg/dL (6-20); Carbon Dioxide 25 mEq/L (23-29); Chloride 108 mEq/L (98-107); Glucose 85 mg/dL (70-105); Osmolality,Calculated 292 (280-300); Potassium 3.5 mEq/L (3.5-5.1); Sodium 142 mEq/L (136-145); eGFR For African Americans > 60 (> 60); eGFR For Non-African Americans > 60 (> 60)
[2019-05-30] MEDS: Acyclovir 750 MG in D5% in Water 250 ML IVPB SCH ×3 (09:27→23:55)
[2019-05-30] MEDS: Nicotine 14 MG PATCH.TD24 TD SCH (09:28)
--- NOTE | 2019-05-30 12:25 | Internal Med Progress Note ---
Hospitalist Progress Note - Encounter Date of Encounter: 05/30/19 Time of Encounter: 12:25 - Subjective Interval History: Feels a little dizzy/lightheaded this morning but otherwise denies complaints. Says his fever and headache have gone away, appetite is good, and that in general he is feeling better. Denies N/V/D, CP or palpitations, SOB or cough, an d no blurry vision neck stiffness. - Exam Vitals: Temp Pulse Resp BP Pulse Ox 98.0 F 70 18 150/99 97 05/30/19 11:16 05/30/19 11:16 05/30/19 11:16 05/30/19 11:16 05/30/19 11:16 Exam: General: NAD, good eye contact, relatively well-appearing young man HEENT: no neck stiffness Thoracic: Normal breath sounds b/l, no wheezing or crackles Cardio: Normal S1 and S2, regular rate and rhythm Abdomen: Soft, nontender Extremities: Warm, well perfused. No edema. Skin: Intact. No rashes, bruises, or ulcers Neuro: Awake, fully oriented. Speech fluent - Summary of Assessment and Plan Summary of Assessment and Plan: Radha Bender is a 24 M w hx asthma who p/w TADEO and fever and multiple sick contacts w vURI symptoms, found to have CSF showing 1400 nucleated cells 70% PMN s, concerning for meningitis. Meningitis: hx suggests viral, but neutrophil predominance suggests bacterial. Clinically improving today. - CSF and BCx x2 pending - empiric vanc, ceftriaxone, acyclovir - gentle MIVF NS@75 - ID consult for treatment rec's Sepsis (poa): SIRS 2/4 (tachypnea, fever) w suspected source above, lactate wnl. Cultures, abx, and fluids as above. Smoker: nicotine replacement offered, cessation advised Obesity: BMI 30 PPx: ambulate Tele: no Activity: up ad tyrese FEN: regular, MIVF NS@75 Lines: PIV Consults: ID Code: Full Dispo: patient requires inpatient eval and management at this time, anticipate 1-2 more days, will be homegoing Internal Medicine: Result - Labs CBC & Chem 7: 05/30/19 04:59 05/30/19 04:59 Labs: Short CBC 05/30/19 Range/Units 04:59 WBC 7.0 (4.3-11.1) K/mcL Hgb 15.2 (12.9-16.9) g/dL Hct 45.6 (37.5-50.1) % Plt Count 165 (140-400) K/mcL Neutrophils # 3.7 (1.6-8.9) K/mcL [facility] 05/30/19 04:59 Sodium 142 Potassium 3.5 Chloride 108 H Carbon Dioxide 25 BUN 8 Creatinine 0.81 Glucose 85 Calcium 8.0 L Consult Discharge Plan - Plan Referrals: NONE,PCP [Primary Care Provider] -
[2019-05-30 13:17] LABS: Adenovirus Not Detected (Not Detect); Bordetella Pertussis Not Detected (Not Detect); Chlamydophila pneumoniae Not Detected (Not Detect); Coronavirus 229E Not Detected (Not Detect); Coronavirus HKU1 Not Detected (Not Detect); Coronavirus NL63 Not Detected (Not Detect); Coronavirus OC43 Not Detected (Not Detect); Human Metapneumovirus Not Detected (Not Detect); Human Rhinovirus/Enterovirus Not Detected (Not Detect); Influenza A Subtype 2009 H1 Not Detected (Not Detect); Influenza A Untypeable Not Detected (Not Detect); Influenza B Not Detected (Not Detect); Mycoplasma pneumoniae Not Detected (Not Detect); Parainfluenza Virus 1 Not Detected (Not Detect); Parainfluenza Virus 2 Not Detected (Not Detect); Parainfluenza Virus 3 Not Detected (Not Detect); Parainfluenza Virus 4 Not Detected (Not Detect); Respiratory Syncytial Virus Not Detected (Not Detect)
[2019-05-31] MEDS: cefTRIAXone 2,000 MG in Water for inj. (sterile) 20 ML IVP SCH (05:55)
[2019-05-31] MEDS: Acyclovir 750 MG in D5% in Water 250 ML IVPB SCH (07:59)
[2019-05-31] MEDS: Nicotine 14 MG PATCH.TD24 TD SCH (07:59)
[2019-05-31 09:05] LABS: BUN/Creatinine Ratio 9 (6-26); Blood Urea Nitrogen 8 mg/dL (6-20); Calcium 8.8 mg/dL (8.6-10.3); Carbon Dioxide 26 mEq/L (23-29); Chloride 108 mEq/L (98-107); Glucose 108 mg/dL (70-105); Osmolality,Calculated 285 (280-300); Potassium 3.5 mEq/L (3.5-5.1); Sodium 138 mEq/L (136-145); eGFR For African Americans > 60 (> 60); eGFR For Non-African Americans > 60 (> 60)
[2019-05-31 11:22] VITALS: BP 140/82
--- NOTE | 2019-05-31 11:37 | Infectious Disease Consult ---
Infectious Disease-Consult - Encounter Date/Time Date of Encounter: 05/31/19 Time of Encounter: 11:29 - Data of Consult Patient: new to practice Reason for consult: Meningitis Consult date: 05/31/19 Requesting Physician: Sadi Blackwell Primary Care Provider: PCP NONE - HPI HPI: Patient is a 24-year-old gentleman who presented to [facility] on 05/29/2019 with a headache, was admitted to rule out meningitis. We are consulted on 05/31/2019 for "meningitis, unclear bacterial versus viral" Patient is a 24-year-old man who has a past medical history significant only for asthmaurrently not taking any pack a day and h patient lives with his girlfriend and his 2 sons age 5 and age 3 weeks old. Patient tells me that his 5-year-old son had a viral syndrome that started about 5 days prior to starting. He also was having fevers headache. Patient tells me that about 7 days prior to admission he started having. Aches fever and then he had headache. 2-3 days prior to admission he was starting to have neck pain and stiffness. Patient denies any rhinorrhea. No sinus pressure, no sore throat, no cough or sputum production. No pleuritic chest pain. Patient works moving furniture. Denies any recent tick bite. Patient denies any rash or joint pain. Patient denies any history of cold sores or HSV infection that he remembers Since admission, patient's MAXIMUM TEMPERATURE was 100.1, no tachycardia and no tachypnea presenting WBC was 9.5 with normal differential neutrophils 65% no bands. An LP was done which revealed pleocytosis nucleated cells of 1400 with 69% neutrophils 23% lymphocytes. Glucose 50 for protein 127. Patient had respiratory infectious panel done which came back negative, HIV antigen/antibody was nonreactive. Blood cultures May 2022 sets no growth to date. Grew a creatinine test was also done and came back negative. CSF Gram stain and cultures. CT head was done and showed no acute intracranial abnormality or mass. A chest x-ray was done which showed no pneumonia or any other acute cardiopulmonary abnormality. Patient was started on vancomycin, ceftriaxone and acyclovir. We were asked to evaluate the patient and make further recommendations. - ROS Review of Systems: 10 point review of systems done, negative other for what mentioned in history of present illness - Results CBC & Chem 7: 05/30/19 04:59 05/31/19 08:27 - Exam Vitals: Temp Pulse Resp BP Pulse Ox 99.2 F 65 18 140/82 97 05/31/19 11:21 05/31/19 11:21 05/31/19 11:21 05/31/19 11:21 05/31/19 11:21 Exam: GENERAL: Laying in bed, appears comfortable. HEAD: Normocephalic atraumatic EYES: PERRLA, EOMI, no conjunctival hemorrhage, sclera anicteric ENT: Mucous membranes moist, no oral thrush NECK: Supple. No meningeal signs. No masses LUNGS: Chest expanding symmetrically. Lungs sounds audible both lung sequeira. No wheezing, no rhonchi CV: RRR, S1S2, ABDOMEN: Soft, nontender, nondistended. Bowel sounds audible EXTREMITY: Adequate perfusion. No joint effusion. SKIN: Normal color. No rash. Has multiple tattoos. NEURO: Awake alert oriented 3. No obvious focal deficit PSYCH: Calm and appropriate. No agitation. No Known Home Drugs 05/28/19 [History] Allergy/AdvReac Type Severity Reaction Status Date / Time azithromycin [From Zithromax] AdvReac Vomiting Verified 05/29/19 17:06 - Assessment and Plan (1) Aseptic meningitis Current Visit: Yes Status: Acute Patient came in with headache and low-grade fever. Denied any altered mental status or change in behavior CSF studies on 05/29/2019 revealed pleocytosis with WBC 1400-65% neutrophils, 23% lymphocytes. Gram stain negative. Culture no growth to date. CSF glucose 54, CSF protein 127. Respiratory infectious panel negative HIV negative Patient was started on empiric vancomycin, Rocephin and acyclovir SNOMED Code(s): 077700617 (2) Tobacco abuse Current Visit: Yes Status: Acute Smokes half a pack per day SNOMED Code(s): 370906593 (3) Asthma Current Visit: Yes Status: Acute Qualifiers: Asthma severity: mild Asthma persistence: intermittent Asthma complication type: uncomplicated Qualified Code(s): J45.20 - Mild intermittent asthma, uncomplicated SNOMED Code(s): 335178462 (4) Allergy to antibiotic Current Visit: Yes Status: Acute As he to mycin gives him nausea. No true allergies. SNOMED Code(s): 098003869809253 - Recommendations Recommendations: At this point this is aseptic meningitis due to a virus which he likely acquired from his 5-year-old son I do not think patient needs antibiotics so recommend stopping the vancomycin and the Rocephin Clinically does not appear due to HSV encephalitis. Patient has no encephalitis symptoms. DC contact/droplet precautions From my perspective patient needs symptomatic treatment with Tylenol/Motrin for his headache and low-grade fever, bed rest and proper hydration. Symptoms usually persist from aseptic meningitis for 714 days. Past Med Surg Social Fam HX - Past Medical History Medical history: asthma Psychiatric history: anxiety, depression - Past Surgical History Surgical History: no surgical history - Social History Smoking Status: Current every day smoker Packs per day: 1/2 Smokeless Tobacco Status: No Alcohol use: occasionally Drug use: none - Family History Mother Hx Family Medical Disorders: Yes (COPD/ASTHMA) Consult Discharge Plan - Plan Referrals: NONE,PCP [Primary Care Provider] -
--- NOTE | 2019-05-31 12:28 | Discharge Summary ---
Orders not resulted at time of discharge: Pending orders 05/28/19 23:53 Culture,Blood [BC] Stat 05/29/19 06:08 Culture,CSF,with Gram Stain [RM] Stat Herpes Simplex PCR Body Fl Stat Date of Encounter: 05/31/19 Time of Encounter: 12:26 Hospital course: Dear Doctors, I recently had the opportunity to care for this patient during their recent hospital stay at [facility]. Radha Bender is a 24 M w hx asthma who presented at time of admission with headache and fever. Patient stated symptoms began about 1 week prior, a few days after his 5 yo child developed vURI symptoms. In the ED, pt febrile. LP performed which showed 1400 nucleated cells 70% PMNs, concerning for meningitis. Pt started on empiric acyclovir, rocephin, vanc, and admitted. In the hospital, patient had improvement in his headache symptoms and had no further fevers. CSF did not grow any organisms. ID was consulted who felt this most likely represented aseptic meningitis and that it was appropriate to discontinue empiric abx. Patient will be discharged home in good condition with prn tylenol and ibuprofen. Dx: Aseptic meningitis Pertinent tests/consults: Lumbar puncture, ID consult Follow up: PCP as needed Tests pending: HSV PCR pending Med changes: none Mental status: awake, fully oriented Code status: Full It has been my pleasure participating in this patient's care. Please contact me with any questions or concerns regarding their hospital stay. Sincerely, Sadi Blackwell MD - Discharge Medications Prescriptions: No Action No Known Home Drugs 1 each .ROUTE AD each Home Medications: No Known Home Drugs 05/28/19 [History] Allergies/Adverse Reactions: Allergy/AdvReac Type Severity Reaction Status Date / Time azithromycin [From Zithromax] AdvReac Vomiting Verified 05/29/19 17:06 Date of admission: 05/29/19 08:25 Primary care physician: PCP NONE Consults: 05/29/19 10:06 dietary consult [Consult to Nutrition] [CONS] Routine Comment: Consulting Provider: NUTRITION Reason for Dietary Consult: MST Score 05/30/19 12:47 Consult to Infectious Diseases [CONS] Routine Consulting Provider: Infectious Disease [place] Reason for Consult: meningitis, unclear if bacterial v viral Call Completed: No - Constitutional Vitals: Temp Pulse Resp BP Pulse Ox 99.2 F 65 18 140/82 97 05/31/19 11:21 05/31/19 11:21 05/31/19 11:21 05/31/19 11:21 05/31/19 11:21 Exam: General: NAD, good eye contact, relatively well-appearing young man HEENT: no neck stiffness Thoracic: Normal breath sounds b/l, no wheezing or crackles Cardio: Normal S1 and S2, regular rate and rhythm Abdomen: Soft, nontender Extremities: Warm, well perfused. No edema. Skin: Intact. No rashes, bruises, or ulcers Neuro: Awake, fully oriented. Speech fluent - Patient Status Disposition: Home, Self-Care Condition: Good Functional capacity at discharge: independent ambulation Overall status at discharge: patient is back to baseline - Discharge Instructions Follow Up With: Mayco Calero MD [Non-Partnered Physician] - 06/08/19 10:15 am - Diet and Activity Activity: resume usual activities as tolerated Diet: advance to your usual diet
[2019-05-31] MEDS ORDERED: Aminoglycoside Consult 1 EACH MC ONE (13:10)
[2019-06-01 13:49] LABS: HSV Source CSF
== END 2019-05-31 13:11 | disposition home or self-care (01) | DRG 50 ==
LOC: 2NNU 21:45 → EMEROOARM 21:45 → SUATTDRO 05-29 08:25 → 2NNU 05-29 09:36
PROVIDERS: ADMIT Internal Medicine; ATTEND Internal Medicine